=== PATIENT | female | born 1940 | race Caucasian/White ===

== ENCOUNTER → 2018-09-25 | Outpatient (CLI) | payer OTHER ==
[~2018-09-25] VITALS: Ht 160 cm; Wt 63.5 kg
[~2018-09-25] MED LIST: COREG6.25 MG PO; LISINOPRIL20 MG PO; MOBIC15 MG PO; NORVASC5 MG PO; PROTONIX40 M1 PO; TRAMADOL 50 MG50 MG PO
--- NOTE | ~2018-09-25 | P ---
[facility] [place] [address] PROCEDURE REPORT Name: JUAN A BLACK Room #: REG [facility].#: [id number] Admission: 09/25/18 Attend Phys: Oz Myers MD Discharge: Date of : 42 Report #: [id number] THIS REPORT FOR: //name// CC: Oz Robles MD DATE OF SERVICE: 09/25/2018 BRIEF HISTORY: The patient is a 78-year-old woman who has a history of colon polyps. She also recently has had abdominal pain and black stools. She reports she was recently seen in the hospital at [facility] and had a hemoglobin in the 7 range. Her black stools have resolved. She presents for endoscopic evaluation due to GI bleeding. Please see upper endoscopy report as well. PREOPERATIVE DIAGNOSES: 1. Gastrointestinal bleeding. 2. History of polyps. POSTOPERATIVE DIAGNOSES: 1. Colon polyps. 2. Moderate to severe diverticulosis coli. 3. Rectal mucosal prolapse. MEDICATIONS: Deep sedation with propofol per anesthesia. SPECIMEN: 1. Cecal polyp. 2. Mid ascending colon polyp. 3. Polyps at 40 cm x 2. ESTIMATED BLOOD LOSS: 3 mL. PROCEDURE: Colonoscopy to cecum and terminal ileum with snare polypectomy, biopsy, saline elevation of polyp and tattoo of cecal polypectomy site. FINDINGS: Prior to propofol sedation, procedure of colonoscopy was discussed with the patient as well as potential risks and its complications. She indicates she understands and desires to proceed. DESCRIPTION OF PROCEDURE: With the patient in left lateral decubitus position, digital examination was completed, which revealed no abnormalities. Subsequently, the Olympus video colonoscope was introduced in the rectum, advanced under direct vision to the cecum. This was done with minimal difficulty. The cecum was identified by the ileocecal valve and the appendiceal [facility] [address] [place] [address] PROCEDURE REPORT Name: JUAN A BLACK Room #: REG [facility]#: [id number] Admission: 09/25/18 Attend Phys: Oz Myers MD Discharge: Date of : 42 Report #: [id number] orifice. I was able to visualize the distal segment of terminal ileum, which was inspected and noted to be unremarkable. At that point, the scope was slowly withdrawn and careful circumferential views obtained. The scope was drawn back into the cecum and upon inspection of the cecum, there was noted to be a flat polyp. It was oblong in shape. It was probably to possibly 2.5 cm in length and at maximum with it was probably 8-10 mm; however, much of it was narrower than 8-10 mm. It had a benign appearance. We elevated the polyp with 30 mL of saline. After elevation of polyp, it was removed in a piecemeal fashion. After snare polypectomy in a piecemeal fashion, there appeared to be several fragments of tissue that were not engaged in the snare. These were cleaned up with biopsy forceps. We then used argon plasma coagulation to treat the edges and edges of the polyp site as well as areas of polypectomy site, which were thought possibly to be problematic with regards to complete polypectomy. Good effect was achieved. There was good hemostasis. Then, we placed tattoos on both ends of the polyp. At that point, scope was slowly withdrawn and careful circumferential views were obtained. As we withdrew the scope, another flat polyp in the range of about 6 mm was seen in the mid ascending colon removed by cold snare polypectomy. The scope was further withdrawn and no additional abnormalities were noted until about 40 cm, at which point, 2 diminutive polyps were seen and removed by biopsy forceps. In addition, the patient was noted to have moderately severe diverticular disease, but no endoscopic evidence of diverticulitis. The scope was further withdrawn and no additional abnormalities were seen. The scope was withdrawn in the rectum. Upon retroflexion, hemorrhoids were seen. It was also noted she had circumferential mucosal prolapse of about 2 cm or so. The scope was withdrawn. The patient tolerated the procedure well. CONDITION OF THE PATIENT UPON DISCHARGE: Following procedure, the patient drowsy, arousable and conversant. She will be discharged home when fully ambulatory. INSTRUCTIONS TO THE PATIENT AND FAMILY AT THE TIME OF DISCHARGE: The patient with recent melenic stools. I do not see a bleeding lesion. No blood was seen on this examination today. Black material was not seen. There was no blood in the distal ileum. The source of blood loss is not entirely clear. Please see upper endoscopy report as well. At this point, recommend she return for a small bowel capsule study. She should also take iron. We will also obtain a hemoglobin today, but note that it is after the procedure and after a saline infusion. By: [id number] [id number] Oz Myers MD /alondra
--- NOTE | ~2018-09-25 | PATH ---
[facility] [address] [address] [place] [address] PATHOLOGY RPT PROCEDURE Name: JUAN A BLACK Room #: REG [facility].#: [id number] Admission: 09/25/18 Date of : 42 Discharge: Report #: [id number] Path Case #: [id number] [facility] Accession Number: [id number] . 01 Material submitted: . PART A: GASTRIC BIOPSY R/O H PYLORI PART B: CECAL POLYP PART C: MID ASCENDING COLON POLYP PART D: POLYP AT 40CM COLON X2 . 01 Clinical history: . Pre-OP DX: Hx gastric ulcer, GI bleeding Post-OP DX: Hiatal hernia, gastric erosions, rectal prolapse, diverticulosis, colon polyps . 02 Diagnosis: A. Gastric mucosa, gastric R/O H. pylori, endoscopic biopsy: - Mild reactive gastropathy. - Negative for intestinal metaplasia or atrophy. - Negative for Helicobacter pylori (properly controlled immunohistochemical stain performed. . B. Polyp, cecal polyp, endoscopic biopsy: - Tubular adenoma. - Negative for high-grade dysplasia. . C. Polyp, mid ascending colon polyp, endoscopic biopsy: - Tubular adenoma. - Negative for high-grade dysplasia. . D. Polyp x 2, at 40 cm, endoscopic biopsy: - One fragment showing a minute tubular adenoma without high-grade dysplasia. - Second fragment showing changes compatible with a hyperplastic polyp without dysplasia. (IUV:arabella; 09/26/2018) QMS/09/26/2018 . 02 Electronically signed: . Reshma Daly MD, Pathologist NPI- [id number] . 01 Gross description: . A. Received in formalin labeled "Juan A Black, gastric biopsy, rule out H. pylori," are 4 segments of escobar soft tissue measuring 0.9 x 0.6 x 0.2 cm in aggregate dimensions and ranging from 0.3 to 0.5 cm in maximum dimension. The specimen is submitted entirely in cassette A1. [address] [address] PATHOLOGY RPT PROCEDURE Name: JUAN A BLACK Room #: REG [facility]#: [id number] Admission: 09/25/18 Date of : 42 Discharge: Report #: [id number] Path Case #: [id number] . B. Received in formalin labeled "Juan A Black, cecal polyp," are multiple segments of escobar soft tissue measuring 2.0 x 1.1 x 0.3 cm in aggregate dimensions. The specimen is filtered and entirely submitted in cassette B1. . C. Received in formalin labeled "Juan A Black, mid ascending colon polyp," are 3 segments of escobar soft tissue measuring 0.9 x 0.5 x 0.3 cm in aggregate dimensions and ranging from 0.3 to 0.8 cm in maximum dimension. The specimen is submitted entirely in cassette C1. . D. Received in formalin labeled "Black, Juan A, polyp at 40 cm-colon x2," are 2 segments of escobar soft tissue measuring 0.9 x 0.3 x 0.2 cm in aggregate dimensions and ranging from 0.4 to 0.5 cm in maximum dimension. The specimen is submitted entirely in cassette D1. (TSD; 09/25/2018) TOB/TOB . 02 Pathologist provided ICD-10: K31.9, D12.0, D12.2, D12.6, K63.5 . 02 CPT . 955563, 483514, 831190, 105223, W52017 Specimen Comment: A courtesy copy of this report has been sent to Specimen Comment: [phone], . Specimen Comment: Report sent to / DR COTTRELL Specimen Comment: A duplicate report has been generated due to demographic updates. Performed at: [address], [place] [id number] MD Fernando Velasquez MD Phone: [phone] Performed at: [address] [id number] MD Reshma Daly MD Phone: [phone]
--- NOTE | ~2018-09-25 | P ---
[facility] [place] [address] PROCEDURE REPORT Name: JUAN A BLACK Room #: REG [facility]#: [id number] Admission: 09/25/18 Attend Phys: Oz Myers MD Discharge: Date of : 42 Report #: [id number] THIS REPORT FOR: //name// CC: Oz Robles BRIEF HISTORY: The patient is a 78-year-old woman with a prior history of duodenal ulcer disease. She also has longstanding reflux disease for which she takes a PPI. She developed black stools and left upper quadrant pain in the past 2 weeks. She was seen in the Emergency Room last week and reportedly had a hemoglobin of 7. She did have some orthostatic complaints. She presents today for endoscopic evaluation due to black stools, abdominal pain and anemia. PREOPERATIVE DIAGNOSES: 1. Anemia. 2. Melena. 3. Prior history of peptic ulcer disease. POSTOPERATIVE DIAGNOSES: 1. Large hiatus hernia, in the range of 7-8 cm. 2. Gastritis with erosions in the distal aspect of the hiatus hernia without bleeding. 3. Tortuous distal esophagus secondary to large hiatus hernia. MEDICATIONS: Deep sedation with propofol per anesthesia. SPECIMEN: Biopsies of gastritis. ESTIMATED BLOOD LOSS: 3 mL. PROCEDURE: EGD with biopsy. FINDINGS: Prior to propofol sedation, the procedure of upper endoscopy was reviewed with the patient as well as potential risks and its complications. She indicates she understands and desires to proceed. DESCRIPTION OF PROCEDURE: With the patient in the left lateral decubitus position, the Fuji video endoscope was inserted in the cervical esophagus under direct vision without difficulty. Examination of this organ through its entire length revealed normal esophageal mucosa into the distal esophagus. The distal esophagus was very tortuous due to a large hiatus hernia. However, no mucosal lesions were seen. The scope was advanced into the stomach and a very large hiatus hernia was entered. The hernia was so large that we could easily retroflex the scope within it. Upon retroflexion, the squamocolumnar junction was seen and noted to be unremarkable. No bleeding was seen within the hernia. However, in the distal aspect of the hernia, as the stomach crossed the [facility] [address] [place] [address] PROCEDURE REPORT Name: JUAN A BLACK Room #: REG [facility].#: [id number] Admission: 09/25/18 Attend Phys: Oz Myers MD Discharge: Date of : 42 Report #: [id number] diaphragmatic hiatus, several Errol erosions were seen, but no ulcers seen, bleeding was not identified. The pylorus, duodenal bulb and postbulbar sweep were inspected and noted to be unremarkable. At that point, the scope was slowly withdrawn and careful circumferential views were obtained. Biopsies were obtained to evaluate for H. pylori in view of her prior history of duodenal ulcer disease. Bleeding lesion was not identified on today's exam. CONDITION OF THE PATIENT UPON DISCHARGE: Following procedure, she was drowsy. She was then prepared for colonoscopy. INSTRUCTIONS TO THE PATIENT AND FAMILY AT THE TIME OF DISCHARGE: Bleeding lesion was not seen. She did have some erosions, but no ulcers were seen. A clear cut bleeding source was not identified. It is possible she could have had a Dieulafoy lesion which is not evident on today's exam. However, at this time, we will proceed with colonoscopy for further evaluation of her melanotic stools and drop in hemoglobin. She should be cautious with the use of nonsteroidals, she will continue use of PPI. If she has further symptoms with regard to hiatus hernia, surgical repair may be a consideration in the future. By: 0910 1055 Oz Myers MD /alondra
[2018-09-25 10:55] LABS: HEMATOCRIT 22.1 % (37.0-47.0); HEMOGLOBIN 7.2 gm/dL (12.0-15.0); MCHC 32.6 g/dL (28.0-37.0); MCV 85.9 fL (80.0-100.0); RBC 2.58 mil/uL (4.20-5.00); RDW 14.8 % (10.5-14.5); WBC 6.3 thou/uL (4.0-11.0)
== END | disposition home or self-care (01) ==
LOC: GI 07:03
PROVIDERS: Specialist
DX: D12.0 Benign neoplasm of cecum (principal); D12.2 Benign neoplasm of ascending colon; D12.5 Benign neoplasm of sigmoid colon; K63.5 Polyp of colon; K31.9 Disease of stomach and duodenum, unspecified; K57.30 Diverticulosis of large intestine without perforation or abscess without bleeding; K62.3 Rectal prolapse; K44.9 Diaphragmatic hernia without obstruction or gangrene; K22.8 Other specified diseases of esophagus; K21.9 Gastro-esophageal reflux disease without esophagitis; I10 Essential (primary) hypertension; D64.9 Anemia, unspecified; Z90.710 Acquired absence of both cervix and uterus; Z90.49 Acquired absence of other specified parts of digestive tract; Z98.41 Cataract extraction status, right eye; Z98.42 Cataract extraction status, left eye; Z98.890 Other specified postprocedural states; Z96.652 Presence of left artificial knee joint; Z79.899 Other long term (current) drug therapy; Z88.2 Allergy status to sulfonamides; Z88.8 Allergy status to other drugs, medicaments and biological substances
CPT/HCPCS: 62110; 62900

== ENCOUNTER → 2018-09-26 | Outpatient (CLI) | payer OTHER ==
--- NOTE | ~2018-09-26 | P ---
[facility] [place] [address] PROCEDURE REPORT Name: JUAN A BLACK Room #: REG [facility]#: [id number] Admission: 09/26/18 Attend Phys: Oz Myers MD Discharge: Date of : 42 Report #: [id number] THIS REPORT FOR: //name// CC: Oz Robles CAPSULE ENDOSCOPY REPORT BRIEF HISTORY: The patient is a 78-year-old woman who was admitted to [facility] with marked anemia with hemoglobin ranges 7. Colonoscopy and upper endoscopy were nondiagnostic with regards to active bleeding. She was noted to have a large hiatus hernia, which can be associated with anemia. However, due to her profound anemia without clear cut explanation, M2 capsule study was recommended. PREOPERATIVE DIAGNOSIS: Blood loss anemia. POSTOPERATIVE DIAGNOSIS: Two small bowel arteriovenous malformations. MEDICATIONS: None. ESTIMATED BLOOD LOSS: None. PROCEDURE: M2 small bowel capsule study. FINDINGS: The patient ingested the capsule. Data was collected and reviewed at the workstation. Examination of the small bowel revealed normal mucosa. In the very distal duodenum or proximal jejunum, 2 small nonbleeding AVMs were seen. The remainder of the small bowel was normal. No other lesions were seen. No blood was seen on this examination. DISPOSITION: Findings of 2 nonbleeding AVMs. We will have her return a later date for small bowel endoscopy to try to identify and cauterize these lesions. These may be a source of blood loss. In the interval time, she should continue iron and again monitor hemoglobin. By: 1121 1135 Oz Myers MD /nt
== END | disposition home or self-care (01) ==
LOC: GI 07:07
DX: K55.20 Angiodysplasia of colon without hemorrhage (principal); Z88.2 Allergy status to sulfonamides; Z88.8 Allergy status to other drugs, medicaments and biological substances; Z79.899 Other long term (current) drug therapy